=== PATIENT | male | born 1980 | race Hispanic/Latino ===

== ENCOUNTER 2023-02-03 13:23 | Emergency (ER) | payer BC ==
[~2023-02-03] VITALS: Ht 165.1 cm; Wt 120.2 kg
[~2023-02-03 13:23] MED LIST: CLIN-116 PO; INSU100V12 SQ; LISI10TA PO; METF500T PO; METO25 PO; SULF1TAB42 PO
[2023-02-03 14:04] LABS: BASOPHILS # (AUTO) 0.02 K/uL (0.00-0.20); BASOPHILS % (AUTO) 0.2 % (0.0-5.0); EOSINOPHILS # (AUTO) 0.05 K/uL (0.00-0.70); EOSINOPHILS % (AUTO) 0.6 % (0.0-8.0); HEMATOCRIT 40.1 % (42-54); IMMATURE GRANULOCYTE ABSOLUTE 0.04 K/uL (0-1); LYMPHOCYTES # (AUTO) 2.4 K/uL (1.0-4.8); LYMPHOCYTES % (AUTO) 26.4 % (21.0-51.0); MEAN CORPUSCULAR HEMOGLOBIN 29.3 pg (27.0-33.0); MEAN CORPUSCULAR HGB CONC 34.4 g/dL (32.0-36.0); MEAN CORPUSCULAR VOLUME 85.1 fL (79-99); MONOCYTES # (AUTO) 0.6 K/uL (0.1-1.0); MONOCYTES % (AUTO) 6.9 % (3.0-13.0); NEUTROPHILS # (AUTO) 5.8 K/uL (1.8-7.7); NEUTROPHILS % (AUTO) 65.5 % (40.0-77.0); PLATELET COUNT (AUTO) 182 K/uL (130-400); RED BLOOD CELL COUNT(AUTO) 4.71 MIL/uL (4.50-6.20); RED CELL DISTRIBUTION WIDTH 12.9 % (11.0-15.5); WHITE BLOOD COUNT (AUTO) 8.9 K/uL (4.8-10.8)
[2023-02-03 14:12] LABS: CREATININE 1.3 mg/dL (0.5-1.5); POTASSIUM 3.6 mmol/L (3.5-5.1)
[2023-02-03 14:18] LABS: ALBUMIN 3.9 g/dL (3.5-5.0); BILIRUBIN,TOTAL 0.4 mg/dL (0.2-1.0); MAGNESIUM 1.5 mg/dL (1.80-2.40); TOTAL PROTEIN, SERUM 7.6 g/dL (6.0-8.3)
[2023-02-03 14:23] LABS: APPEARANCE,URINE CLEAR (CLEAR); BILIRUBIN,URINE NEGATIVE (NEGATIVE); COLOR,URINE COLORLESS (YELLOW); GLUCOSE, URINE (UA) NEGATIVE (NEGATIVE); KETONES,URINE NEGATIVE (NEGATIVE); LEUKOCYTE ESTERASE ,URINE NEGATIVE Leu/uL (NEGATIVE); NITRATE,URINE NEGATIVE (NEGATIVE); PH,URINE 6.5 (5.0-8.0); PROTEIN,URINE NEGATIVE (NEGATIVE); UROBILINOGEN,URINE 0.2 mg/dL (0.2-1.0)
[2023-02-03 14:27] LABS: SARS-CoV-2, RNA, NAAT NEGATIVE SARS CoV-2 (NEGATIVE)
[2023-02-03 14:31] LABS: AMPHET/METH SCREEN,URINE NEGATIVE (NEGATIVE); BARBITURATE SCREEN, URINE NEGATIVE (NEGATIVE); BENZODIAZEPINES SCREEN,URINE NEGATIVE (NEGATIVE); CANNABINOID SCREEN,URINE NEGATIVE (NEGATIVE); COCAINE SCREEN,URINE NEGATIVE (NEGATIVE); INFLUENZA TYPE A Negative For Type A (NEGATIVE); INFLUENZA TYPE B Negative For Type B (NEGATIVE); OPIATE SCREEN,URINE NEGATIVE (NEGATIVE); PHENCYCLIDINE SCREEN,URINE NEGATIVE (NEGATIVE)
[2023-02-03 14:36] LABS: ADD UA MICROSCOPIC YES
[2023-02-03 14:37] LABS: BACTERIA,URINE RARE /HPF (None Seen); WBC,URINE 0-1 /HPF (0-1)
[2023-02-03] MEDS ORDERED: MAGNESIUM 2GM PREMIX 50ML 50 ML IV SCH (15:00)
[2023-02-03] MEDS ORDERED: MECL-302 PO (19:28)
[2023-02-03 19:30] VITALS: BP 132/52; PULSE 85; RESP 18; O2SAT 97
== END 2023-02-03 19:38 | disposition home or self-care (01) ==
LOC: EDH 13:23
DX: R42 Dizziness and giddiness (principal); M54.16 Radiculopathy, lumbar region; J45.909 Unspecified asthma, uncomplicated; I10 Essential (primary) hypertension; E78.00 Pure hypercholesterolemia, unspecified; Z20.822 Contact with and (suspected) exposure to COVID-19
CPT/HCPCS: 99285; 70551; 96365; 70450; 71045; 87635; 96366; 83735; 84484; 80053; 80305; 85025; 87804 ×2; 81001; 36415; 93005; C9803; J3475

== ENCOUNTER 2025-02-12 19:46 | Emergency (ER) | payer BC ==
[~2025-02-12] VITALS: Ht 165.1 cm; Wt 124.3 kg
[~2025-02-12 19:46] MED LIST changes: +MECL-302 PO
--- NOTE | 2025-02-12 20:37 | ERN ---
General Chief Complaint: Abdominal Pain Stated Complaint: C/O ABD PAIN RADIATING TO BACK X 2 DAYS W3/ NAUSEA Time Seen by MD: 19:53 History of Present Illness Initial Comments 44-year-old male, history of obesity, diabetes, who presents for right upper quadrant and right back pain on and off for the last 48 hours. He reports some nausea without vomiting. No fevers diarrhea dysuria. Pain is mostly in the right upper quadrant epigastric area and does not radiate to the right flank and right back. Pain is not associated with food, he is p.o. tolerant. He has been told in the past he had that he may have gallstones but this is unclear. No surgical history. Allergies: Coded Allergies: No Known Drug Allergies (Verified Allergy, Unknown, 02/27/14) Home Meds Active Scripts Meloxicam (Meloxicam) 15 Mg Tablet, 15 MG PO DAILY PRN for PAIN for 10 Days, #10 TAB Prov:DAYSI BUTTS DO 02/12/25 Meclizine HCl (Meclizine HCl) 25 Mg Tablet, 25 MG PO TID PRN for DIZZINESS, #15 TAB 0 Refills Prov:BEN GREEN MD 02/03/23 Clindamycin HCl (Clindamycin HCl) 150 Mg Capsule, 150 MG PO TID, #30 CAP Prov:SHERLYN HYLTON MD 03/03/14 Sulfamethoxazole/Trimethoprim (Bactrim Ds Tablet) 1 Each Tablet, 1 EACH PO BID, #14 TAB Prov:SHERLYN HYLTON MD 03/03/14 Metoprolol Tartrate (Lopressor) 25 Mg Tablet, 12.5 MG PO BID, #60 TAB Prov:SHERLYN HYLTON MD 03/03/14 Metformin HCl (Glucophage) 500 Mg Tablet, 500 MG PO BIDMEALS, #60 TAB Prov:SHERLYN HYLTON MD 03/03/14 Lisinopril (Prinivil) 10 Mg Tablet, 10 MG PO BID, #60 TAB Prov:SHERLYN HYLTON MD 03/03/14 Insulin Detemir (Levemir) 100 Unit/1 Ml Unit, 30 UNIT SQ HS for 60 Days, VIAL Prov:SHERLYN HYLTON MD 03/03/14 Past Medical History Past Medical History: Diabetes-Type II, High Cholesterol, Hypertension, Other Medical History Other: GOUT Past Surgical History: None Surgical History Other: CATARACTS Social History Social History: Negative, Lives with family ROS Dictation CONSTITUTIONAL: No chills, no fever, no weakness, no diaphoresis, no malaise. HEAD/FACE: No signs of trauma. EENT: No eye pain, no blurred vision, no tearing, no double vision, no ear pain, no ear discharge, no nose pain, no nasal congestion, no throat pain, no throat swelling, no mouth pain. RESPIRATORY: No cough, no orthopnea, no SOB, no stridor, no wheezing. CARDIOVASCULAR: No chest pain, no edema, no palpitations, no syncope. GASTROINTESTINAL/ABDOMINAL: Right upper quadrant pain, right flank pain, nausea GENITOURINARY: No abnormal discharge, no dysuria, no frequent urination, no hematuria. No complaints of pain in the genitals. MUSCULOSKELETAL: No back pain, no gout, no joint pain, no joint swelling, no muscle pain, no muscle stiffness, no neck pain. INTEGUMENTARY: No change in color, no change in hair/nails, no dryness, no lesion, no lumps, no rash. NEUROLOGICAL/PSYCH: No anxiety, not depressed, no emotional problem, no headache, no numbness, no pre-existing deficit, no history of seizures, no tremors, no weakness. HEMATOLOGIC/LYMPHATIC: Not anemic, no history of blood clots, no apparent bleeding, no bruising, glands not swollen. All Systems Negative, Except as Noted. Physical Exam Physical Exam Dictation VITAL SIGNS: Reviewed. GENERAL APPEARANCE: Alert, oriented x3, no acute distress, obese. HEAD AND FACE: Non-traumatic. EYES: PERRL, pink conjunctivas, eyelid no trauma, anterior chamber clear. EARS: Pinnas intact and no signs of trauma or erythema. Ear canals clear and no discharge. TMs no erythema. NOSE: No discharge, no bleeding. OROPHARYNX: Mouth normal, teeth no caries, tongue pink. Pharynx clear, no erythema. Tonsils no exudates, no abscesses noted. Mucous membrane moist. NECK: Supple, non-tender, no thyromegaly, no masses, no JVD, no bruits. BREAST: Deferred. CHEST: No tenderness, no crepitus, no paradoxical movement, no retractions. LUNGS: Clear, well-ventilated, symmetric, no rales, no wheezing, no rhonchi, no stridor, good breath sounds bilaterally. HEART: Regular rate, regular rhythm, no murmur, no gallops. VASCULAR: No peripheral edema. ABDOMEN: Soft, positive bowel sounds, nondistended, no guarding, nontender, no rebound, no masses no hepatomegaly, no splenomegaly, no Millard's sign, no hernias. RECTAL: Deferred. GENITAL: Deferred. NEUROLOGICAL: Normal speech, gross motor function intact, gross sensory function intact. MUSCULOSKELETAL: Neck nontender, full range of motion, back nontender, full range of motion. EXTREMITIES: Nontender, full range of motion. SKIN: Color pink, dry, no turgor, no rash, no lacerations, no abrasions, no contusions. LYMPHATICS: Deferred. Results Laboratory and Microbiology Lab and Micro Result Laboratory Tests Test 02/12/25 20:01 02/12/25 20:31 Urine Color COLORLESS (YELLOW) Urine Appearance CLEAR (CLEAR) Urine pH 5.5 (5.0-8.0) Urine Specific Connelly 1.005 (1.001-1.031) Urine Protein NEGATIVE mg/dL (NEGATIVE) Urine Glucose (UA) NEGATIVE mg/dL (NEGATIVE) Urine Ketones NEGATIVE mg/dL (NEGATIVE) Urine Occult Blood NEGATIVE (NEGATIVE) Urine Nitrate NEGATIVE (NEGATIVE) Urine Bilirubin NEGATIVE mg/dL (NEGATIVE) Urine Urobilinogen 0.2 mg/dL (0.2-1.0) Urine Leukocyte Esterase NEGATIVE Sp/uL White Blood Count 10.8 K/uL (4.8-10.8) Red Blood Count 4.62 MIL/uL (4.50-6.20) Hemoglobin 13.7 g/dL (14.0-18.0) L Hematocrit 40.3 % (42-54) L Mean Corpuscular Volume 87.2 fL (79-99) Mean Corpuscular Hemoglobin 29.7 pg (27.0-33.0) Mean Corpuscular Hemoglobin Concent 34.0 g/dL (32.0-36.0) Red Cell Distribution Width 13.0 % (11.0-15.5) Platelet Count 216 K/uL (130-400) Mean Platelet Volume 9.9 fL (7.5-10.5) Immature Granulocyte % (Auto) 0.5 % (0-1) Neutrophils (%) (Auto) 56.6 % (40.0-77.0) Lymphocytes (%) (Auto) 33.5 % (21.0-51.0) Monocytes (%) (Auto) 7.9 % (3.0-13.0) Eosinophils (%) (Auto) 1.2 % (0.0-8.0) Basophils (%) (Auto) 0.3 % (0.0-5.0) Neutrophils # (Auto) 6.1 K/uL (1.8-7.7) Lymphocytes # (Auto) 3.6 K/uL (1.0-4.8) Monocytes # (Auto) 0.9 K/uL (0.1-1.0) Eosinophils # (Auto) 0.13 K/uL (0.00-0.70) Basophils # (Auto) 0.03 K/uL (0.00-0.20) Absolute Immature Granulocyte (auto 0.05 K/uL (0-1) Nucleated Red Blood Cells 0.0 % (0.0-0.19) Sodium Level 140 mmol/L (136-145) Potassium Level 3.4 mmol/L (3.5-5.1) L Chloride Level 103 mmol/L (101-111) Carbon Dioxide Level 31 mmol/L (21-32) Blood Urea Nitrogen 21 mg/dL (7-18) H Creatinine 1.3 mg/dL (0.5-1.3) Glomerular Filtration Rate Calc 69 mL/min (>90) Random Glucose 135 mg/dL (70-105) H Total Calcium 9.0 mg/dL (8.5-10.1) Total Bilirubin 0.4 mg/dL (0.2-1.0) Direct Bilirubin 0.1 mg/dL (0.0-0.3) Aspartate Amino Transf (AST/SGOT) 17 U/L (10-37) Alanine Aminotransferase (ALT/SGPT) 28 U/L (12-78) Alkaline Phosphatase 101 U/L (50-136) Total Creatine Kinase 195 U/L (21-232) Troponin I High Sensitivity 10 ng/L (4-75) Total Protein 7.5 g/dL (6.0-8.3) Albumin 4.1 g/dL (3.5-5.0) Lipase 61 U/L (16-77) MDM CC: Right back pain arrival quadrant pain Historian: Patient Comorbidities: Obesity, diabetes Limitations by social determinants of health: None Differential diagnosis: Biliary disease, musculoskeletal type pain, gastritis, pancreatitis, other. Vital signs are stable Patient declined pain medications. The lab work is unremarkable independently interpreted by me. No leukocytosis no anemia. Chemistry panel stable. Liver enzymes stable. Troponin stable. Lipase stable. Urinalysis unremarkable. CT of the abdomen and pelvis shows no acute abnormalities. Signs of a distended urinary bladder, does not correlate with the patient's presentation. The ultrasound shows no acute abnormalities. Fatty liver. Patient has been having some back pains, he is describing a band distribution from the back should the front arrival quadrant. I suspect he may be having some nerve discomfort. This point in time patient has no surgical pathology, no signs of SIRS or sepsis, he is nontoxic in appearance. We will DC with supportive care and recommend PCP follow up. ED Course Orders Procedure Category Date Status Time Cbc With Differential LAB 02/12/25 Complete 20:01 Troponin I High LAB 02/12/25 Complete Sensitivity 20:01 Urinalysis Profile LAB 02/12/25 Complete 20:01 Ct Abdomen/Pelvis CT 02/12/25 Resulted W/Contrast 20:01 Us Abdominal Ruq\Ltd US 02/12/25 Resulted 20:01 Lactated Ringers PHA 02/12/25 Complete 1000ml (Lactated 20:30 Ketorolac PHA 02/12/25 Complete Tromethamine 15mg/Ml 20:30 Morphine 4mg Syg PHA 02/12/25 Complete (Morphine 4mg Syg) 20:30 Ondansetron 4mg Inj PHA 02/12/25 Complete (Zofran 4mg Inj) 20:30 Creatine Kinase, Total LAB 02/12/25 Complete 20:01 Chest 1vw RAD 02/12/25 Taken 20:01 Lipase LAB 02/12/25 Complete 20:01 Basic Metabolic Panel LAB 02/12/25 Complete 20:01 Hepatic Function Panel LAB 02/12/25 Complete 20:01 Current Medications Medications (Trade) Dose Ordered Sig/Miranda Route PRN Reason Start Time Stop Time Status Last Admin Dose Admin Ketorolac Tromethamine (toRADol) 15 mg ONCE ONCE IV 02/12/25 20:30 02/12/25 20:32 DC 12/31/25 21:16 Lactated Ringer's 1,000 ml @ 0 mls/hr ONCE ONCE IV 02/12/25 20:30 02/12/25 20:32 DC 02/12/25 21:15 Morphine Sulfate (morPHINE 4MG SYG) 4 mg ONCE ONCE IVP 02/12/25 20:30 02/12/25 20:38 DC Ondansetron HCl (zoFRAN 4MG INJ) 4 mg ONCE ONCE IVP 02/12/25 20:30 02/12/25 20:32 DC 02/12/25 21:16 Vital Signs Date Time Temp Pulse Resp B/P (MAP) Pulse Ox O2 Delivery O2 Flow Rate FiO2 02/12/25 22:08 97.7 76 19 132/78 100 Room Air* 0 02/12/25 21:00 97.7 75 19 127/76 99 Room Air* 0 21 02/12/25 19:48 97.7 81 20 141/86 99 Room Air DX & DISP Disposition: Discharge Departure Impression: Primary Impression: Musculoskeletal back pain Additional Impression: Unspecified abdominal pain Condition: Stable Scripts Meloxicam (Meloxicam) 15 Mg Tablet 15 MG PO DAILY PRN for PAIN for 10 Days, #10 TAB Prov: DAYSI BUTTS DO 02/12/25 Additional Instructions: There are no dangerous findings on your workup here today. As we discussed, your symptoms may be related to musculoskeletal type back pain. The ultrasound does not show any gallstones or abnormalities your gallbladder. The CT scan does not show any major abnormalities. Your lab work (CBC, metabolic panel, liver function tests, lipase, urinalysis) is unremarkable. I have prescribed meloxicam, which is a nonsteroidal anti-inflammatory pain medication. Take this once per day for pain and discomfort. I also recommend that you use Voltaren gel or lidocaine patches to your back. These medications are [id number]. You can take 1000 mg of Tylenol up to 3 times per day as needed for pain. This medication is [id number]. I also recommend using a heating pad at night. Please follow up with your primary doctor regarding your symptoms. You may need further studies or treatment. Return to emergency department as needed. Referrals: SELF,REFERRAL (PCP) DAYSI BUTTS DO Feb 12, 2025 20:37
[2025-02-12 20:44] LABS: IMMATURE GRANULOCYTE ABSOLUTE 0.05 K/uL (0-1); NUCLEATED RED BLOOD CELLS 0.0 % (0.0-0.19); PLATELET COUNT (AUTO) 216 K/uL (130-400); RED BLOOD CELL COUNT(AUTO) 4.62 MIL/uL (4.50-6.20); RED CELL DISTRIBUTION WIDTH 13.0 % (11.0-15.5); WHITE BLOOD COUNT (AUTO) 10.8 K/uL (4.8-10.8)
[2025-02-12 20:53] LABS: ADD UA MICROSCOPIC NO; APPEARANCE,URINE CLEAR (CLEAR); GLUCOSE, URINE (UA) NEGATIVE (NEGATIVE); LEUKOCYTE ESTERASE ,URINE NEGATIVE Leu/uL (NEGATIVE); NITRATE,URINE NEGATIVE (NEGATIVE); OCCULT BLOOD,URINE NEGATIVE (NEGATIVE)
[2025-02-12 20:54] LABS: CREATININE 1.3 mg/dL (0.5-1.3); GLOMERULAR FILTR. RATE CALC 69.0 mL/min (>90); GLUCOSE,RANDOM 135.0 mg/dL (70-105); SODIUM SERUM 140.0 mmol/L (136-145); UREA NITROGEN, BLOOD 21.0 mg/dL (7-18)
[2025-02-12 21:01] LABS: ASPARTATE AMINOTRANSFERASE 17.0 U/L (10-37); CREATINE KINASE, TOTAL 195.0 U/L (21-232); TOTAL PROTEIN, SERUM 7.5 g/dL (6.0-8.3)
--- NOTE | 2025-02-12 21:09 | HMCIMG ---
EXAMINATION: ULTRASOUND OF THE ABDOMEN (LIMITED) WITH COLOR DOPPLER. CLINICAL HISTORY: Pain. COMPARISON: None provided. TECHNIQUE: Real-time grayscale ultrasound images of the abdomen. In addition, color Doppler is medically necessary to perform in order to evaluate vascularity and blood flow. FINDINGS: Liver: Normal in caliber; the right hepatic lobe measures 16.6 cm in the craniocaudal dimension. There is increased echogenicity of the hepatic parenchyma. There is no focal hepatic abnormality or intrahepatic biliary ductal dilatation. There is a normal spectral Doppler of the main portal vein. Gallbladder: Suboptimally distended and within normal limits with normal wall thickness (0.2 cm). No hyperemia or pericholecystic free fluid. There is no cholelithiasis. The common bile duct is normal in caliber, measuring 0.5 cm. Pancreas: Normal in caliber and echotexture. No calcification or dilated pancreatic duct. The right kidney is normal in caliber; the right kidney measures 11.5 x 5.5 x 4.8 cm in its craniocaudal, AP, and transverse dimensions. There is normal renal cortical thickness and cortical echogenicity. There is no renal calculus or hydronephrosis. IMPRESSION: Fatty infiltration of the liver. No other significant abnormality. /Suki
[2025-02-12] MEDS: LACTATED RINGERS 1000ML 1,000 ML IV ONE (21:15)
[2025-02-12] MEDS ORDERED: MELO-108 PO (21:49)
[2025-02-12 22:08] VITALS: BP 132/78; PULSE 76; RESP 19; TEMP 97.7; O2SAT 100
--- NOTE | 2025-02-14 10:47 | HMCIMG ---
CHEST 1VW REASON: CP COMPARISON: Prior chest radiograph from 02/03/2023 is available. FINDINGS: Single view of the chest was obtained. Lungs are clear. Heart size is normal. There is no pulmonary vascular congestion. Mediastinum and bony thorax appear unremarkable. IMPRESSION: 1. No acute cardiac pulmonary process and unchanged from prior study.
--- NOTE | 2025-02-18 08:58 | HMCIMG ---
EXAM: CT Abdomen and Pelvis without IV contrast CLINICAL HISTORY: Patient presents with epigastric pain radiating to the back. TECHNIQUE: Axial computed tomography images of the abdomen and pelvis without intravenous contrast. CONTRAST: Without IV contrast. COMPARISON: Ultrasound dated February 12, 2025. FINDINGS: LUNG BASES: The lung bases appear clear. No pleural effusions are seen. LIVER: Normal-sized liver with fatty infiltration of the liver. No obvious focal lesion. GALLBLADDER AND BILE DUCTS: The gallbladder is partially distended. No radioopaque gallstones are seen. No biliary ductal dilatation is evident. PANCREAS: Unremarkable. SPLEEN: Unremarkable. ADRENAL GLANDS: Unremarkable. KIDNEYS, URETERS, AND BLADDER: The kidneys appear within normal limits. Mild bilateral non-specific perinephric fat stranding is present. There is no hydronephrosis or hydroureter. No urinary calculi are seen. Partially distended urinary bladder with subtle wall thickening, probable changes of cystitis. No intraluminal pathology. STOMACH AND BOWEL: Unremarkable appearance of the stomach and bowel. No evidence of bowel obstruction. No evidence suggesting enteritis or colitis. APPENDIX: No evidence of acute appendicitis on CT examination. PERITONEUM: No free fluid. No free air. LYMPH NODES: No lymphadenopathy is evident. REPRODUCTIVE: Unremarkable as visualized. VASCULATURE: No evidence of abdominal aortic aneurysm. BONES: Mild multilevel degenerative changes are present in the spine. No aggressive appearing osseous lesion. No acute osseous pathology evident. IMPRESSION: Partially distended urinary bladder with subtle wall thickening, probable changes of cystitis. No intraluminal pathology. Suggest urine microscopy correlation. No evidence of renal or ureteric calculus or hydronephrosis. The gallbladder, pancreas, and appendix appear unremarkable. Mild fatty infiltration of the liver. /Fleming
== END 2025-02-12 22:32 | disposition home or self-care (01) ==
LOC: EDH 19:46
DX: M54.9 Dorsalgia, unspecified (principal); R10.11 Right upper quadrant pain; R10.13 Epigastric pain; E11.9 Type 2 diabetes mellitus without complications; E78.00 Pure hypercholesterolemia, unspecified; I10 Essential (primary) hypertension; E66.9 Obesity, unspecified; Z79.899 Other long term (current) drug therapy; R11.0 Nausea
CPT/HCPCS: 99285; 74176; 96374; 76705; 71045; 96361; 96375; 82550; 80076; 84484; 80048; 83690; 85025; 81003; 36415; J1885; J7120; J2405; 74177